=== PATIENT | male | born 1975 | race Caucasian/White ===

== ENCOUNTER 2017-05-15 06:29 | Day surgery (SDC) | payer BC ==
[~2017-05-15 06:29] MED LIST: Buffered Lidocaine 0.9% SYRIN* 5 ML/SYR SYRINGE INTRADERM ONE
[2017-05-15] MEDS ORDERED: ceFAZolin 2 GM PREMIX (*) 2 GM/50 ML BAG IVPB ONE (06:42)
[2017-05-15] MEDS ORDERED: Bupivacaine 0.25% SDV* 30 ML ONE ×2 (06:50→07:07)
[2017-05-15] MEDS ORDERED: Propofol* 10 MG/ML 20 ML BTL IV PUSH ONE (06:54)
[2017-05-15] MEDS ORDERED: Dexamethasone IV* 4 MG/ML 1 ML (4 MG) ONE (06:54)
[2017-05-15] MEDS ORDERED: fentaNYL* 50 MCG/ML 2 ML VIAL (100 MCG VIAL) ONE ×2 (06:55→08:53)
[2017-05-15] MEDS ORDERED: Atracurium* 10 MG/ML 10 ML VIAL ONE (06:55)
[2017-05-15] MEDS ORDERED: Midazolam* 1 MG/ML 5 ML VIAL (5 MG) ONE (06:55)
[2017-05-15] MEDS ORDERED: DiMENhydriNATE IV* 50 MG/ML VIAL IV PUSH PRN (08:21)
[2017-05-15] MEDS ORDERED: Naloxone* 0.4 MG/ML 1 ML VIAL IV PRN (08:21)
[2017-05-15] MEDS ORDERED: oxyCODONE/Acetamin 5/325 MG* TAB PO PRN (08:21)
[2017-05-15] MEDS ORDERED: HYDROcodone/ACETAMIN 5-325 MG* 1 TAB PO PRN (08:21)
[2017-05-15] MEDS ORDERED: HYDROmorphone INJ* 1 MG/ML CARPUJECT SYRINGE IV PRN (08:21)
[2017-05-15] MEDS ORDERED: Ondansetron INJ* 2 MG/ML VIAL IV PRN (08:21)
[2017-05-15] MEDS ORDERED: fentaNYL* 50 MCG/ML 2 ML VIAL (100 MCG VIAL) IV PRN (08:21)
[2017-05-15] MEDS ORDERED: Acetaminophen IV 1GM/100ML * 1,000 MG/100 ML VIAL IVPB ONE (08:21)
[2017-05-15] MEDS ORDERED: Ondansetron INJ* 2 MG/ML VIAL ONE (08:52)
[2017-05-15] MEDS ORDERED: Glycopyrrolate IV* 0.2 MG/ML 1 ML VIAL ONE (09:16)
[2017-05-15] MEDS ORDERED: Neostigmine Methylsulfate* 1 MG/ML 10 ML VIAL (1 mg/ml) ONE (09:16)
[2017-05-15] MEDS ORDERED: Acetaminophen IV 1GM/100ML * 0 ML ONE (09:52)
[2017-05-15] MEDS ORDERED: oxyCODONE/Acetamin 5/325 MG* TAB ONE (09:56)
[2017-05-15 10:17] VITALS: BP 130/86
--- NOTE | 2017-05-16 00:58 | OP ---
CC: PCP, Jewel Bella MD * DATE OF OPERATION: 05/15/17 - [facility] DATE OF : 71 SURGEON: Opal Pacheco MD. BOOT AND SHOE LABORER: MEETA Zamora. An ophthalmic assistant was needed for the entirety of the case to help with positioning, retraction and was utilized throughout all portions of the case. ANESTHESIOLOGIST: Toby Charles MD ANESTHESIA: General interscalene block. PREOPERATIVE DIAGNOSIS: Right shoulder full thickness tear of the rotator cuff with bicipital tendonitis. POSTOPERATIVE DIAGNOSIS: Right shoulder full thickness tear of the supraspinatus tendon with superior labrum anterior and posterior type 2 tear. OPERATIVE PROCEDURES: Right shoulder arthroscopy with: 1. Glenohumeral debridement. 2. Subacromial decompression with acromioplasty. 3. Rotator cuff repair suspraspinatus in a double-row fashion. 4. Subpectoral biceps tenodesis. IMPLANTS USED: Two Burns and Nephew 4.75 Healicoils, one Multifix and one 2.8 mm QFIX. COMPLICATIONS: None. ESTIMATED BLOOD LOSS: Minimal. INDICATIONS: Gabe Sequeira is a 42-year-old male who sustained injury to his right shoulder when he slipped off the stairs and caught himself with the elbow. This happened earlier in the year. He has failed conservative management and MRI findings with a full thickness tear of the supraspinatus tendon. He did work on physical therapy to work on his range of motion. Risks and benefits of surgery were discussed at length, included, but are not limited to bleeding, infection, damage to nerves, vessels, surrounding structures, wound nonhealing, persistent pain, need for further surgery, scarring, stiffness , incomplete relief of symptoms and risk of anesthesia. He was a cigarette smoker, but he has been quitting. He said his last cigarette was approximately 4 days ago. DESCRIPTION OF PROCEDURE: The patient was greeted in the preoperative area by the attending surgeon. The correct extremity was marked, consent was confirmed. The patient then underwent interscalene nerve block by the anesthesiologist after which he was brought back to the operating suite where he was placed in supine position on the operating room table. He then underwent general anesthesia and endotracheal intubation after which he was placed in the left lateral decubitus position with an axillary roll. All bony prominences were padded. He was secured with the pegboard. The right arm was draped unsterile with 10 pounds of traction. The right shoulder was prepped and draped in the usual sterile fashion beginning with chlorhexidine soap, scrub , and alcohol wipe and a final prep with ChloraPrep. After appropriate surgical pause indicating side, site, procedure, and administration of antibiotics, the posterolateral portal was made sharply with an 11 blade. Scope was introduced into the joint, the joint was examined. The gleno-humeral joint had grade 0 to 1 changes. The anterior, posterior and superior labrum had unstable fraying. The superior labrum had type 2 SLAP tear with positive peel-back sign. The anterior portal was made in an outside-in fashion. Shaver was used to debride back the anterior, posterior and superior labrum. The biceps was then tenotomized. There was obvious tearing of the supraspinatus tendon. The subscapularis was intact. There was synovitis all throughout the joint which was present. Once the debridement was complete, attention was directed to the subacromial space. The scope was positioned in the subacromial space. A lateral portal was made in outside-in fashion. A shaver was used to debride back the abundant synovitic bursitis that was present. The undersurface of the acromion was skeletonized revealing a small anterolateral spur, this was debrided back using a 4-0 oval rebekah. All excess fluid and debris was removed from this portion of the case. Once the extensive bursectomy was complete, attention was directed to the rotator cuff. There was evidence of full-thickness tear, but the tendon had not retracted significantly. The tendon edges were then debrided back using the shaver. The shaver and the rasps were then used to help decorticate and then finally the 4-0 oval rebekah was used to decorticate the greater tuberosity to allow for good bony bleeding bed. Through two separate stab incisions, two 4.75 Healicoils were placed with excellent purchase. The bone quality was quite good. The sutures were then passed through the tendon in a horizontal mattress configuration and then tied down using arthroscopic knot tying technique. This nicely reapproximated the rotator cuff. The remaining sutures were then passed through a Multifix anchor which was then impacted into place for lateral row fixation. Final images were obtained. Wounds were copiously irrigated with sterile saline. Attention was directed to the biceps. The bed was airplaned to the right side. The anterior aspect of the shoulder was prepped again using ChloraPrep. A 15-blade was used to make an incision in line with the biceps tendon encompassing inferior two-thirds of the pec. Soft tissues were carefully dissected using Metzenbaum scissors until the fascia was identified. The remainder of the dissection was done bluntly. The pec was elevated. The bicipital groove was palpated. The biceps was then brought through the wound and found to have abundant synovitis and erythema as well as tendinopathy. The groove was then prepared in the usual fashion using electrocautery device, the red ball rasp, as well as the osteotome to allow for gentle bony bleeding bed. A QFIX drill guide was then used to position and then the drill was used to drill unicortically. The QFIX was deployed with excellent purchase. Sutures were then passed through the tendon approximately 1 cm proximal to the musculotendinous junction in a Everardo- Samir type configuration. The excess stump was excised. The wounds were copiously irrigated with sterile saline after the biceps was secured. The portals were closed with 3-0 nylon. The anterior wounds were closed with 2-0 Vicryl and 3-0 Monocryl. The anterior wound was injected with 20 cc of 0.25% Marcaine. Sterile dressings were applied. A Cryo/Cuff and UltraSling were applied. He was awoken from anesthesia and transferred to the PACU in stable condition. POSTOPERATIVE PLAN: He will be nonweightbearing. He will be allowed elbow, hand and wrist range of motion. He will be discharged on pain medication and antibiotics. DVT prophylaxis was considered, but deferred due to no previous personal or family history. I will see the patient back in 10 to 14 days. [id number]/[facility] #: [id number] [facility]
== END 2017-05-15 10:12 | disposition home or self-care (01) ==
LOC: OREAST 06:29
PROVIDERS: ATTEND Orthopaedic Surgery
DX: S46.011A Strain of muscle(s) and tendon(s) of the rotator cuff of right shoulder, initial encounter (principal); S43.491A Other sprain of right shoulder joint, initial encounter; M75.21 Bicipital tendinitis, right shoulder; W00.1XXA Fall from stairs and steps due to ice and snow, initial encounter; Y92.9 Unspecified place or not applicable; J45.909 Unspecified asthma, uncomplicated; F17.210 Nicotine dependence, cigarettes, uncomplicated; G89.18 Other acute postprocedural pain
CPT/HCPCS: A9270-GY; C1713; C1776; J0690; J1100; J2250; J2405; J2704; J2710; J3010